=== PATIENT | female | born 1965 | race African-American/Black ===

== ENCOUNTER 2017-11-06 11:35 | Emergency (ER) | payer MEDICAID, OTHER ==
[~2017-11-06] VITALS: Ht 170.2 cm; Wt 100.0 kg
[~2017-11-06 11:35] MED LIST: HYDR-519
[2017-11-06 11:47] VITALS: BP 140/93
[2017-11-06 12:28] LABS: CLARITY URINE CLOUDY (CLEAR); COLOR URINE YELLOW (YELLOW); KETONES URINE TRACE (NEGATIVE); LEUKOCYTE ESTERASE URINE 3+ (NEGATIVE); NITRITE URINE POSITIVE (NEGATIVE); OCCULT BLOOD URINE 2+ (NEGATIVE); PROTEIN URINE TRACE (NEGATIVE); SPECIFIC GRAVITY URINE 1.023 (1.005-1.030)
== END 2017-11-06 13:49 | disposition home or self-care (01) ==
LOC: ER 13:46
DX: N30.90 Cystitis, unspecified without hematuria (principal); M19.90 Unspecified osteoarthritis, unspecified site
CPT/HCPCS: 81001; 99283

== ENCOUNTER 2018-04-04 19:52 | Emergency (ER) | payer MEDICAID, OTHER ==
[~2018-04-04] VITALS: Ht 170.2 cm; Wt 100.0 kg
[2018-04-05 01:05] VITALS: BP 149/81
== END 2018-04-05 01:56 | disposition home or self-care (01) ==
LOC: ER 21:38
DX: H66.91 Otitis media, unspecified, right ear (principal); J06.9 Acute upper respiratory infection, unspecified
CPT/HCPCS: 99283

== ENCOUNTER 2018-05-10 13:13 | Emergency (ER) | payer MEDICAID ==
[~2018-05-10] VITALS: Ht 167.6 cm; Wt 110.0 kg
[2018-05-10] MEDS ORDERED: CYCLOBENZAPRINE 10MG TABLET PO ONE (15:15)
[2018-05-10] MEDS ORDERED: IBUPROFEN 800MG TABLET PO ONE (15:15)
[2018-05-10 18:38] VITALS: BP 149/79
== END 2018-05-10 18:34 | disposition home or self-care (01) ==
LOC: ER 15:00
DX: S13.4XXA Sprain of ligaments of cervical spine, initial encounter (principal); S43.402A Unspecified sprain of left shoulder joint, initial encounter; V49.09XA Driver injured in collision with other motor vehicles in nontraffic accident, initial encounter; Y93.89 Activity, other specified; Y92.89 Other specified places as the place of occurrence of the external cause; Y99.8 Other external cause status
CPT/HCPCS: 99283

== ENCOUNTER 2018-06-11 23:41 | Emergency (ER) | payer MEDICAID ==
[~2018-06-11] VITALS: Ht 170.2 cm; Wt 106.0 kg
[2018-06-12] MEDS: IBUPROFEN 400MG TABLET PO ONE (03:53)
[2018-06-12 05:38] VITALS: BP 125/75
== END 2018-06-12 05:39 | disposition home or self-care (01) ==
LOC: ER 23:41
DX: S10.81XA Abrasion of other specified part of neck, initial encounter (principal); M75.82 Other shoulder lesions, left shoulder; S80.212A Abrasion, left knee, initial encounter; S70.212A Abrasion, left hip, initial encounter; V74.9XXA Unspecified occupant of bus injured in collision with heavy transport vehicle or bus in traffic accident, initial encounter; Y93.89 Activity, other specified; Y92.89 Other specified places as the place of occurrence of the external cause; Y99.8 Other external cause status; Z90.710 Acquired absence of both cervix and uterus
CPT/HCPCS: 72170; 73060; 73562; 81025; 99284; Z7610

== ENCOUNTER 2018-06-19 00:13 | Emergency (ER) | payer MEDICAID ==
[~2018-06-19] VITALS: Ht 170.2 cm; Wt 104.0 kg
[2018-06-19] MEDS ORDERED: HYDROCODONE/ACETAMINOPHEN 5/325MG TABLET PO ONE (01:30)
[2018-06-19 02:15] LABS: BASOPHILS % 0.4 % (0.0-2.0); EOSINOPHILS % 1.7 % (0.0-5.0); HEMATOCRIT. 34.9 % (36.0-48.0); HEMOGLOBIN. 11.9 g/dL (12.0-16.0); LYMPHOCYTES % 40.7 % (20.0-50.0); MEAN CORPUSCULAR HEMOGLOBIN 32.2 pg (28.0-32.0); MEAN CORPUSCULAR VOLUME 94.3 fL (81.0-99.0); MEAN PLATELET VOLUME 8.4 fl (7.4-10.4); MONOCYTES % 10.4 % (2.0-8.0); NEUTROPHILS % 46.8 % (40.0-76.0); PLATELET 356 x1000/uL (130-400); RED CELL DISTRIBUTION WIDTH 12.5 % (11.6-14.6)
[2018-06-19 02:17] LABS: CHLORIDE 101 mEq/L (98-107)
[2018-06-19 04:28] VITALS: BP 114/71
== END 2018-06-19 04:00 | disposition home or self-care (01) ==
LOC: ER 03:51
DX: S80.212A Abrasion, left knee, initial encounter (principal); M94.0 Chondrocostal junction syndrome [Tietze]; W19.XXXA Unspecified fall, initial encounter; Y93.89 Activity, other specified; Y92.89 Other specified places as the place of occurrence of the external cause; Y99.8 Other external cause status
CPT/HCPCS: 36415; 71045; 80048; 84484; 85025; 85379; 93005; 99285

== ENCOUNTER 2018-08-14 00:12 | Emergency (ER) | payer MEDICAID ==
[~2018-08-14] VITALS: Ht 167.6 cm; Wt 106.0 kg
[2018-08-14 02:11] LABS: BASOPHILS % 0.4 % (0.0-2.0); EOSINOPHILS % 1.8 % (0.0-5.0); HEMATOCRIT. 32.3 % (36.0-48.0); HEMOGLOBIN. 11.1 g/dL (12.0-16.0); LYMPHOCYTES % 44.4 % (20.0-50.0); MEAN CORPUSCULAR HEMOGLOBIN 32.8 pg (28.0-32.0); MEAN CORPUSCULAR VOLUME 95.4 fL (81.0-99.0); MEAN PLATELET VOLUME 7.8 fl (7.4-10.4); NEUTROPHILS % 41.4 % (40.0-76.0); PLATELET 303 x1000/uL (130-400); RED BLOOD CELL COUNT 3.38 mill/uL (4.2-5.4); RED CELL DISTRIBUTION WIDTH 12.3 % (11.6-14.6)
[2018-08-14 02:17] LABS: CHLORIDE 105 mEq/L (98-107); INR 1.1; PROTHROMBIN TIME 10.6 sec (9.1-11.1)
[2018-08-14 02:22] LABS: HCG SCREEN NEGATIVE
[2018-08-14 02:55] LABS: CLARITY URINE CLOUDY (CLEAR); COLOR URINE YELLOW (YELLOW); KETONES URINE TRACE (NEGATIVE); LEUKOCYTE ESTERASE URINE 2+ (NEGATIVE); NITRITE URINE NEGATIVE (NEGATIVE); OCCULT BLOOD URINE NEGATIVE (NEGATIVE); PH URINE 5.5 (4.5-8.0); PROTEIN URINE NEGATIVE (NEGATIVE); SPECIFIC GRAVITY URINE 1.031 (1.005-1.030)
[2018-08-14] MEDS ORDERED: IBUPROFEN 600MG TABLET PO ONE (03:00)
[2018-08-14 03:27] LABS: *AMPHETAMINES SCREEN URINE NEGATIVE (NEGATIVE); *BARBITURATES SCREEN URINE NEGATIVE (NEGATIVE); METHADONE URINE SCREEN NEGATIVE (NEGATIVE); OPIATES URINE SCREEN NEGATIVE (NEGATIVE); PHENCYCLIDINE URINE SCREEN NEGATIVE (NEGATIVE)
[2018-08-14 03:28] LABS: CANNABINOID URINE SCREEN NEGATIVE (NEGATIVE)
[2018-08-14 03:29] LABS: *BENZODIAZEPINES SCREEN URINE NEGATIVE (NEGATIVE)
[2018-08-14 03:30] LABS: *COCAINE SCREEN URINE NEGATIVE (NEGATIVE)
[2018-08-14] MEDS ORDERED: NAPROXEN 500MG TABLET PO ONE (05:15)
[2018-08-14 06:16] VITALS: BP 126/80
== END 2018-08-14 06:22 | disposition home or self-care (01) ==
LOC: ER 00:12
DX: M25.562 Pain in left knee (principal); M25.561 Pain in right knee; F17.200 Nicotine dependence, unspecified, uncomplicated; Z90.710 Acquired absence of both cervix and uterus
CPT/HCPCS: 36415; 71045; 73560; 73562; 80053; 80305; 81003; 83690; 83880; 84703; 85025; 85610; 93005; 93970; 99285

== ENCOUNTER 2018-10-11 00:06 | Emergency (ER) | payer MEDICAID ==
[~2018-10-11] VITALS: Ht 167.6 cm; Wt 105.0 kg
[2018-10-11] MEDS ORDERED: IBUPROFEN 600MG TABLET PO ONE (01:00)
[2018-10-11 01:47] VITALS: BP 122/69
== END 2018-10-11 01:48 | disposition home or self-care (01) ==
LOC: ER 00:40
DX: M25.511 Pain in right shoulder (principal); Z90.710 Acquired absence of both cervix and uterus
CPT/HCPCS: 73030; 99283

== ENCOUNTER 2020-09-27 15:41 | Emergency (ER) | payer MEDICAID, OTHER ==
[~2020-09-27] VITALS: Ht 167.6 cm; Wt 91.0 kg
[2020-09-27] MEDS ORDERED: BALANCED SALT IRRIG SOLN 15ML IR ONE (17:30)
[2020-09-27] MEDS ORDERED: FLUORESCEIN SODIUM 1MG/STRIP RIGHTEYE ONE (17:30)
[2020-09-27] MEDS ORDERED: TETRACAINE 0.5% OPHTH DROPS 4ML RIGHTEYE ONE (17:30)
[2020-09-27] MEDS ORDERED: CEFAZOLIN 1000MG PREMIX 50 ML IV ONE (22:45)
[2020-09-27] MEDS ORDERED: VANCOMYCIN 1 G PREMIX 200 ML IV SCH (22:45)
[2020-09-27 23:33] LABS: CHLORIDE 105 mEq/L (98-107)
[2020-09-27 23:35] LABS: BASOPHILS % 0.3 % (0.0-2.0); HEMATOCRIT. 38.9 % (36.0-48.0); HEMOGLOBIN. 13.2 g/dL (12.0-16.0); LYMPHOCYTES % 46.9 % (20.0-50.0); MEAN CORPUSCULAR HEMOGLOBIN 32.2 pg (28.0-32.0); MEAN CORPUSCULAR VOLUME 94.7 fL (81.0-99.0); MEAN PLATELET VOLUME 8.7 fl (7.4-10.4); MONOCYTES % 9.5 % (2.0-8.0); NEUTROPHILS % 42.3 % (40.0-76.0); PLATELET 361 x1000/uL (130-400); RED BLOOD CELL COUNT 4.11 mill/uL (4.2-5.4); RED CELL DISTRIBUTION WIDTH 12.1 % (11.6-14.6)
[2020-09-28 02:29] VITALS: BP 130/71
== END 2020-09-28 02:40 | disposition home or self-care (01) ==
LOC: ER 15:41
DX: H57.11 Ocular pain, right eye (principal)
CPT/HCPCS: 36415; 70450; 70480; 80053; 85025; 87040; 87077; 87086; 87186; 96365; 96366; 96367; 99285; J0690; J3370

== ENCOUNTER 2023-11-20 23:57 | Emergency (ER) | payer MEDICAID, OTHER ==
[~2023-11-20] VITALS: Ht 170.2 cm; Wt 85.0 kg
[2023-11-21 00:20] VITALS: BP 143/81; PULSE 119; RESP 16; TEMP 98.4; O2SAT 98
[2023-11-21] MEDS ORDERED: ACETAMINOPHEN 325MG TABLET PO ONE (01:45)
== END 2023-11-21 03:10 | disposition home or self-care (01) ==
LOC: ER 23:57
DX: J02.9 Acute pharyngitis, unspecified (principal)
CPT/HCPCS: 87430; 99283